=== PATIENT | male | born 1980 | race Caucasian/White ===

== ENCOUNTER 2016-07-16 18:35 | Emergency (ER) | payer OTHER ==
[~2016-07-16] VITALS: Ht 170.2 cm; Wt 85.1 kg
[2016-07-16] MEDS ORDERED: NAPROSYN500 MG PO (22:18)
[2016-07-16] MEDS ORDERED: ULTRAM50 MG PO (22:18)
[2016-07-16] MEDS ORDERED: FLEXERIL10 MG PO (22:18)
[2016-07-16 22:24] VITALS: BP 128/81
== END 2016-07-16 22:25 | disposition home or self-care (01) ==
LOC: RME 18:35 → EME 18:35 → RME 22:25
DX: S13.9XXA Sprain of joints and ligaments of unspecified parts of neck, initial encounter (principal); M54.5 Low back pain; V59.40XA Driver of pick-up truck or van injured in collision with unspecified motor vehicles in traffic accident, initial encounter; Z87.891 Personal history of nicotine dependence
CPT/HCPCS: 72052; 99281; 99283